=== PATIENT | female | born 1940 | race Caucasian/White ===

== ENCOUNTER → 2016-10-10 | Day surgery (SDC) | payer MEDICARE, OTHER ==
[~2016-10-10] MED LIST: CALC-137 PO; CALC1TAB87 PO; CHOL1CAP6 PO; CRAN1000 PO; CRAN600T PO; GENTAMICIN SULFATE 80 MG/2 ML VIAL ONE; LACTATED RINGER'S 1000 ML INJ 1,000 ML ONE; LEVA250T PO; MEPERIDINE HCL 25 MG/ML VIAL ONE; MIDAZOLAM HCL 2 MG/2 ML VIAL ONE; ONDANSETRON HCL 4 MG/2 ML VIAL IV PUSH ONE; PANC3600 PO; PLAV75TA29 PO; POTA-245 PO; SODIUM CHLORIDE 0.9% INJ 100 ML IV ONE; VITA1000 PO; VYTO10TA35 PO; VYTO10TA9 PO
--- NOTE | 2016-10-10 16:32 | TN ---
cc: MICAH VERA M.D. DATE OF SURGERY 10/10/2016 PREOPERATIVE DIAGNOSIS Left renal calculus (ICD - 10 code of N20.0). POSTOPERATIVE DIAGNOSIS Left renal calculus (ICD - 10 code of N20.0). PROCEDURE Extracorporeal shock wave lithotripsy (ESWL) of left renal calculus (CPT code 70999). INDICATION Ms. Mccartney is a 76-year-old woman who presents now for preemptive treatment using extracorporeal shock-wave lithotripsy for a large left renal calculus. Procedure was as follows. PROCEDURE The procedure as well as risks and benefits were explained to the patient and informed consent was obtained. The patient was taken to the operative theater. She was placed on a [employer] FLX-F2 lithotripsy table. At this time the patient was identified as well as the operative site. Lagrange time-out was performed in standard fashion. General anesthetic and prophylactic intravenous antibiotics were administered. After adequate anesthetic, a fluoroscopic C-arm was used to visualize the aforementioned stone. The shock heads were engaged and a total of 3000 shocks were administered at a frequency of 120 Hz at a power level of 8.0 with apparent pulverization of the stone. The patient tolerated the procedure well, emerged from anesthetic without difficulty and transferred to recovery in stable condition to be discharged home when criteria is met. There were no obvious complications. The patient may require additional endoscopic or extracorporal treatment depending on the results of the KUB in approximately two weeks. MD JULIO Arizmendi/ANGELA /3:43 PM /4:16 PM
== END | disposition home or self-care (01) ==
LOC: ESDC 13:08
PROVIDERS: ATTEND Urology
DX: N20.0 Calculus of kidney (principal)
CPT/HCPCS: 00872; 50590; J1580; J2175; J2250; J2405; J7120

== ENCOUNTER → 2016-11-14 | Outpatient (CLI) | payer MEDICARE, OTHER ==
[~2016-11-14] MED LIST changes: -GENTAMICIN SULFATE 80 MG/2 ML VIAL ONE; -LACTATED RINGER'S 1000 ML INJ 1,000 ML ONE; -MEPERIDINE HCL 25 MG/ML VIAL ONE; -MIDAZOLAM HCL 2 MG/2 ML VIAL ONE; -ONDANSETRON HCL 4 MG/2 ML VIAL IV PUSH ONE; -SODIUM CHLORIDE 0.9% INJ 100 ML IV ONE
[2016-11-14 17:59] LABS: BICARBONATE 23.8 MEQ/L (21.0-32.0); POTASSIUM 3.8 MEQ/L (3.5-5.1)
== END ==
LOC: PLAB 14:53
PROVIDERS: ATTEND Family Medicine
DX: M81.0 Age-related osteoporosis without current pathological fracture (principal); Z79.899 Other long term (current) drug therapy
CPT/HCPCS: 36415; 80048

== ENCOUNTER 2017-01-05 17:44 | Inpatient (IN) | payer MEDICARE, OTHER ==
[~2017-01-05 17:44] MED LIST changes: -CALC1TAB87 PO; -CRAN600T PO; -PANC3600 PO; -VITA1000 PO; -VYTO10TA9 PO
[2017-01-05 17:48] VITALS: BP 157/67; PULSE 107; RESP 16; TEMP 98.7; O2SAT 95
[2017-01-05] MEDS ORDERED: niCARdipine INJ 25 MG in SODIUM CHLOR 0.9% 250 ML INJ 250 ML IV SCH ×2 (18:00→20:00)
[2017-01-05] MEDS ORDERED: SODIUM CHLORID 0.9% 500 ML INJ 500 ML IV ONE (18:00)
[2017-01-05] MEDS ORDERED: SODIUM CHLOR 0.9% 1000 ML INJ 1,000 ML IV SCH ×2 (18:05→19:55)
[2017-01-05 18:14] LABS: AUTOMATED NEUTROPHIL # 7.4 TH/MM3 (1.8-7.7); BASOPHIL # 0.1 TH/MM3 (0-0.2); BASOPHIL % 0.5 % (0.0-2.0); EOSINOPHIL % 0.2 % (0.0-4.0); HEMATOCRIT 35.2 % (35.0-46.0); LYMPH % 21.9 % (9.0-44.0); LYMPHOCYTE # 2.5 TH/MM3 (1.0-4.8); MEAN CELL VOLUME 84.1 FL (80.0-100.0); MEAN CORPUSCULAR HEMOGLOBIN 28.6 PG (27.0-34.0); NEUT % 65.4 % (16.0-70.0); PLATELET COUNT 179 TH/MM3 (150-450); RED BLOOD COUNT 4.19 MIL/MM3 (4.00-5.30); RED CELL DISTRIBUTION WIDTH 15.5 % (11.6-17.2); WHITE BLOOD COUNT 11.3 TH/MM3 (4.0-11.0)
[2017-01-05 18:15] LABS: HEMO FLAGS AUTO DIFF
--- NOTE | 2017-01-05 18:16 | RADRPT ---
EXAM DATE/TIME: 01/05/2017 17:58 [facility] COMPARISON: No previous studies available for comparison. INDICATIONS : Stroke alert, left sided weakness. RADIATION DOSE: 31.94 CTDIvol (mGy) This report was called by Dr. Wilcox to an emergency department nurse at 6: 13 PM MEDICAL HISTORY : Non-responsive. SURGICAL HISTORY : Non-responsive. ENCOUNTER: Initial ACUITY: 1 day PAIN SCALE: Non-responsive LOCATION: head TECHNIQUE: Multiple contiguous axial images were obtained of the head. Using automated exposure control and adj ustment of the mA and/or kV according to patient size, radiation dose was kept as low as reasonably a chievable to obtain optimal diagnostic quality images. FINDINGS: CEREBRUM: The ventricles are normal for age. No evidence of midline shift, mass lesion, hemorrhage or acute in farction. No extra-axial fluid collections are seen. POSTERIOR FOSSA: The cerebellum and brainstem are intact. The 4th ventricle is midline. The cerebellopontine angle i s unremarkable. EXTRACRANIAL: The visualized portion of the orbits is intact. SKULL: The calvaria is intact. No evidence of skull fracture. CONCLUSION: 1. No acute finding CT. Findings called to emergency department at time of dictation. Bruce Wilcox MD on January 05, 2017 at 18:12 Board Certified Radiologist. This report was verified electronically.
[2017-01-05 18:19] LABS: APTT (PATIENT) 32.4 SEC (24.3-30.1); INTERNATIONAL NORMALIZED RATIO 1.1 RATIO; PROTHROMBIN TIME - PATIENT 11.7 SEC (9.8-11.6)
[2017-01-05 18:23] LABS: I-STAT POTASSIUM 2.6 MMOL/L (3.5-4.9); I-STAT SODIUM 137 MMOL/L (138-146)
--- NOTE | 2017-01-05 18:37 | MB ---
cc: KEATON LEWIS M.D. DATE OF CONSULTATION 01/05/17 The patient is an elderly woman with a history of some irregular heart rhythm, however, she denies any A. fib, bilateral lower extremity stents, left carotid endarterectomy, history of cardiac cath who came in with a stroke alert at about 5:00 or 6:00 p.m. tonight. She was in the bathroom, fell on the floor and noted be weak on the left. She came in as a stroke alert. ALLERGIES CEPHALOSPORINS BEE STINGS SULFA DIPRIVAN MEDICATIONS 1. Plavix 2. Potassium 3. Cranberry juice 4. Calcium, 5. Vitamin D 6. Vytorin in the past. REVIEW OF SYSTEMS She denies any headache. She denies any history of hypertension, diabetes, hypercholesterolemia, PR, CABG, stent, angioplasty, A. fib, Coumadin, renal, hepatc, pulmonary disease, thyroid disease lupus, ulcer, cancer, stroke. SOCIAL HISTORY She is not a smoker or drinker. She occasionally has a drink, lives with her son. FAMILY HISTORY Negative for cancer seizure, stroke PHYSICAL EXAMINATION 170/80 sinus rhythm. Her eyes are deviated to the right. She had a left homonymous hemianopsia, left facial droop. 0/5 in a left arm and leg. Left toe is up, right is down. She moves the right side well. She is not aphasic, follows commands well. Speech is fluent. Right arm and leg are normal. LABORATORY DATA UA was positive in August. Basic metabolic profile was normal recently on 11/14/2016 with a creatinine of 1.13. Today creatinine is about 2.2. Potassium in slightly low today. Sodium is normal. All the labs are not back. Coags were normal in 2012. CBC was essentially unremarkable with normal platelet count on 08/17. IMPRESSION Right MCA infarct. CAT scan is negative for hemorrhage. We will go ahead and give TPA and get an MRA of the neck and [place]. We are in touch with the radiologist and MRI. MD KELLIE Alberts/ /6:11 PM /6:26 PM
--- NOTE | 2017-01-05 18:40 | PD ---
HPI Chief Complaint: Stroke Alert Time Seen by Provider: 17:50 Travel History International Travel<30 days: No Contact w/Intl Traveler<30days: No Traveled to known affect area: No History of Present Illness HPI Patient is a 76 year old female who presents to ER with acute onset CVA. As per patients son, patient has been having problems with her gait. Reports that he helped her to the bathroom and then heard a loud thump. Son found patient on the ground - reports that he called for help. EMS arrived on scene - patient had left sided facial droop with left sided paralysis of her body. Patient is alert and oriented x 3 - she is currently on plavix and no other anticoagulants. Patient denies any recent surgeries. Patient with no history of CVA in the past. PFSH Past Medical History Arthritis: No Asthma: No Heart Rhythm Problems: No Cancer: No Cardiovascular Problems: Yes (STENTS IN LEGS) Chest Pain: No Congestive Heart Failure: No COPD: No Cerebrovascular Accident: No Diabetes: No Endocrine: No Gastrointestinal Disorders: Yes (reflux) GERD: No Glaucoma: No Genitourinary: No Hepatitis: No Hiatal Hernia: No Hypertension: No Immune Disorder: No Musculoskeletal: No Neurologic: No Psychiatric: No Reproductive: No Respiratory: Yes (copd) Migraines: No Seizures: No Sleep Apnea: No Thyroid Disease: No Ulcer: No Past Surgical History Abdominal Surgery: No Body Medical Devices: adriano lower stents Cardiac Surgery: Yes (left carotid endarterectomy, CARDIAC CATHERIZATION) Ear Surgery: No Endocrine Surgery: No Eye Surgery: No Genitourinary Surgery: No Gynecologic Surgery: No Oral Surgery: Yes (tonsillectomy) Pacemaker: No Thoracic Surgery: No Other Surgery: Yes Social History Alcohol Use: Yes (SOCIALLY) Tobacco Use: No (quit 2003) Substance Use: No Allergies-Medications (Allergen,Severity, Reaction): Coded Allergies: Cephalosporins (Verified Allergy, Severe, 08/04/16) possible cardiac arrest along with the mixture of ancef diprovan and fentanyl Bee Sting (Verified Allergy, Intermediate, RESP DISTRESS, 08/04/16) Sulfa (Verified Allergy, Mild, Rash, 08/04/16) Uncoded Allergies: DIPROVAN,FENTANYL,ANCEF (Allergy, Severe, 10/30/12) pt had cardiac arrest Reported Meds & Prescriptions Reported Meds & Active Scripts Active Levaquin (Levofloxacin) 250 Mg Tab 250 Mg PO DAILY Reported Plavix (Clopidogrel Bisulfate) 75 Mg Tab 75 Mg PO DAILY Klor-Con M20 (Potassium Chloride Microencaps) 20 Meq Tab 20 Meq PO DAILY Cranberry Juice Extract (Cranberry (Vaccinium Macrocarp) 1,000 Mg Cap 3,600 Mg PO DAILY@0600 Calcium 600 1 Tab PO BID WITH 400 IU VIT D Vitamin D-3 (Cholecalciferol) 1,000 Unit Tab 1,000 Unit PO BID Vytorin 10/40 (Ezetimibe/Simvastatin) Tab 1 Tab PO DAILY Review of Systems General / Constitutional: No: Fever Eyes: No: Visual changes HENT: No: Headaches Cardiovascular: No: Chest Pain or Discomfort Respiratory: No: Shortness of Breath Gastrointestinal: No: Abdominal Pain Genitourinary: No: Dysuria Musculoskeletal: No: Pain Skin: No Rash Neurologic: Positive: Weakness, Focal Abnormalities, Headache, Paresthesia, Sensory Disturbance Psychiatric: No: Depression Endocrine: No: Polydipsia Hematologic/Lymphatic: No: Easy Bruising Physical Exam Narrative GENERAL: Patient in severe distress SKIN: Focused skin assessment warm/dry. HEAD: Atraumatic. Normocephalic. EYES: Pupils equal and round. Patient with right-sided gaze ENT: No nasal bleeding or discharge. Mucous membranes pink and moist. Patient with left-sided facial droop NECK: Trachea midline. No JVD. CARDIOVASCULAR: Tachycardic. No murmur appreciated. RESPIRATORY: No accessory muscle use. Clear to auscultation. Breath sounds equal bilaterally. GASTROINTESTINAL: Abdomen soft, non-tender, nondistended. Hepatic and splenic margins not palpable. MUSCULOSKELETAL: No obvious deformities. No clubbing. No cyanosis. No edema. NEUROLOGICAL: Awake and alert. Normal speech. Patient with left-sided deficits : NIH Scale 16 Data Data Last Documented VS Vital Signs Date Time Temp Pulse Resp B/P Pulse Ox O2 Delivery O2 Flow Rate FiO2 01/05/17 17:48 98.7 107 16 157/67 95 Orders Sodium Chlorid 0.9% 500 Ml Inj (Ns 500 M (01/05/17 18:00) Electrocardiogram (01/05/17 ) I-Stat Creatinine (01/05/17 17:50) I-Stat Profile (01/05/17 17:50) Prothrombin Time / Inr (Pt) (01/05/17 17:50) Act Partial Throm Time (Ptt) (01/05/17 17:50) Complete Blood Count With Diff (01/05/17 17:50) Fibrinogen (01/05/17 17:50) Creatine Kinase (Cpk) (01/05/17 17:50) Troponin I (01/05/17 17:50) Ua Includes Microscopic (01/05/17 17:50) Drug Screen, Random Urine (01/05/17 17:50) Type And Screen (01/05/17 17:50) Ct Brain W/O Iv Contrast(Rout) (01/05/17 ) Consult Neurology (01/05/17 ) Blood Glucose (01/05/17 17:50) Ecg Monitoring (01/05/17 17:50) Iv Access Insert/Monitor (01/05/17 17:50) NPO (01/05/17 17:50) Oximetry (01/05/17 17:50) Oxygen Administration (01/05/17 17:50) Resp Oxygen Akash C Titrat 1-4 L (01/05/17 17:50) Nicardipine Inj (Cardene Inj) (01/05/17 18:00) Westergren Sedimentation Rate (01/05/17 18:05) Thyroid Stimulating Hormone (01/05/17 18:05) Vitamin B1 (Thiamine) (01/05/17 18:05) Vitamin B12 (01/05/17 18:05) Urinalysis - C+S If Indicated (01/05/17 18:05) Ast (Sgot) (01/05/17 18:05) Alt (Sgpt) (01/05/17 18:05) Echo 2d Comp W/Dopp(Routine) (01/05/17 18:05) Holter Monitor Recording (01/05/17 18:05) Mra Brain W/O Contrast (Cow) (01/05/17 18:05) [place] (01/05/17 18:05) Sodium Chlor 0.9% 1000 Ml Inj (Ns 1000 M (01/05/17 18:05) Lipid Profile (01/05/17 18:05) Consult Pt Eval & Treat (01/05/17 18:05) Scd&Teds Bilateral/Knee High JUANA.QSHIFT (01/05/17 18:05) (Hub Use Only)Inp Phy Cons/Ref (01/05/17 18:15) Mra Carotids W/O Contrast (01/05/17 18:05) Mri Brain W/O Contrast (01/05/17 18:05) Labs Laboratory Tests Test 01/05/17 17:15 White Blood Count 11.3 TH/MM3 Red Blood Count 4.19 MIL/MM3 Hemoglobin 12.0 GM/DL Bedside Hemoglobin 12.2 G/DL Hematocrit 35.2 % Bedside Hematocrit 36.0 % Mean Corpuscular Volume 84.1 FL Mean Corpuscular Hemoglobin 28.6 PG Mean Corpuscular Hemoglobin 34.0 % Concent Red Cell Distribution Width 15.5 % Platelet Count 179 TH/MM3 Mean Platelet Volume 9.0 FL Neutrophils (%) (Auto) 65.4 % Lymphocytes (%) (Auto) 21.9 % Monocytes (%) (Auto) 12.0 % Eosinophils (%) (Auto) 0.2 % Basophils (%) (Auto) 0.5 % Neutrophils # (Auto) 7.4 TH/MM3 Lymphocytes # (Auto) 2.5 TH/MM3 Monocytes # (Auto) 1.4 TH/MM3 Eosinophils # (Auto) 0.0 TH/MM3 Basophils # (Auto) 0.1 TH/MM3 CBC Comment AUTO DIFF Prothrombin Time 11.7 SEC Prothromb Time International 1.1 RATIO Ratio Activated Partial 32.4 SEC Thromboplast Time Fibrinogen 403 mg/dL Bedside Sodium 137 MMOL/L Bedside Potassium 2.6 MMOL/L Bedside Chloride 114 MMOL/L Bedside Blood Urea Nitrogen 64 MG/DL Bedside Creatinine 2.4 MG/DL Bedside Glucose 118 MG/DL [facility] Medical Screen Exam Complete: Yes Emergency Medical Condition: Yes Differential Diagnosis CVA, ICH Narrative Course Patient is a 76-year-old female who is alert and oriented x 3, presents to emergency room for CVA. Patient onset of symptoms was 1706 today. BS >100 by EMS. I-STAT labs obtained. NIH Score 16 Patient was brought to CT upon arrival to ER. There was no acute intracranial hemorrhage. Dr. Ruelas was at bedside, patient's initial blood pressure was 192/83, repeat blood pressure was 175/72. Cardvick gtt was at bedside. Decision was to give TPA for treatment of acute CVA. I did review all the risks and benefits of TPA with patient. Patient understands all the risks, patient assumes these risks and is agreeable to TPA CTA of the head and neck was initially ordered, creatinine was 2.4, CTA canceled. Plan to go directly to MRI for MRI of the head head and neck after TPA initiated. Patient's son (POLucas) at bedside, I did review with him pt's current medical condition. EKG: Sinus tach at 103bpm, qt/qtc: 353/413, st seg depressions Critical Care Narrative Aggregate critical care time was 45minutes. Time to perform other separately billable procedures was not included in the critical care time. My time did not include minutes spent treating any other patients simultaneously or on activities that did not directly contribute to the patient's treatment. The services I provided to this patient were to treat and/or prevent clinically significant deterioration that could result in: , decompensation, deterioration I provided critical care services requiring my management, as noted below: Chart data review, documentation time, medication orders and management, vital sign assessments/reviewing monitor data, ordering and reviewing lab tests, ordering and interpreting/reviewing x-rays and diagnostic studies, care of the patient and discussion of the patient with the admitting physicians. Stroke Alert NIHSS NIH Stroke Scale Result: 16 NIHSS Time Completed: 17:45 Thrombolytic Contraindications Contraindications Comment: there are no contraindications for thrombolytics Thrombolytic Delayed Delay Comment: thrombolytics were given while patient was at CT - I as well as neurolgist was present for TPA administration Diagnosis Diagnosis: Primary Impression: CVA (cerebral vascular accident) Qualified Code: I63.9 - Cerebrovascular accident (CVA), unspecified mechanism Additional Impressions: Hypokalemia Renal insufficiency Admitting Physician Requests: Admit Casie Hanson DO January 05, 2017 18:40
[2017-01-05 18:44] LABS: BANDS 17 % (0-6); EOSINOPHILS 1 % (0-4); MYELOCYTES 1 % (0-0); NEUTROPHIL # MANUAL DIFF 8.2 TH/MM3 (1.8-7.7); POLYS (SEG NEUTROPHILS) 55 % (16-70); SCAN/DIFF FINAL DIFF MANUAL; WBC DIFF SAMPLE 100
[2017-01-05 18:45] LABS: CREATINE KINASE 19 U/L (26-192)
[2017-01-05] MEDS ORDERED: CALC1TAB87 PO (18:48)
[2017-01-05] MEDS ORDERED: VITA1000 PO (18:48)
[2017-01-05] MEDS ORDERED: CRAN600T PO (18:51)
[2017-01-05] MEDS ORDERED: VYTO10TA9 PO (18:54)
[2017-01-05] MEDS ORDERED: PANC3600 PO (18:58)
[2017-01-05] MEDS ORDERED: ALTEPLASE DRIP 40.5 MG in SYRINGE/BAG 1 EA IV ONE (19:00)
[2017-01-05] MEDS ORDERED: ALTEPLASE BOLUS 9 MG/9 ML SYR IV ONE (19:00)
[2017-01-05] MEDS ORDERED: MISCELLANEOUS NURSING INFORMATION XX PRN (19:00)
[2017-01-05] MEDS ORDERED: SODIUM CHLORIDE 0.9% 50 ML BAG IVF ONE (19:00)
--- NOTE | 2017-01-05 19:30 | RADRPT ---
EXAM DATE/TIME: 01/05/2017 18:28 [facility] COMPARISON: No previous studies available for comparison. INDICATIONS : Left sided weakness. MEDICAL HISTORY : Renal failure, chronic. Hypertension. Cardiovascular disease. SURGICAL HISTORY : Carotid stent. ENCOUNTER: Initial ACUITY: 1 day PAIN SCORE: 0/10 LOCATION: cranial Please note a normal MRA of the brain does not entirely exclude the possibility of a small aneurysm, nor the possibility of distal intracranial vessel disease. TECHNIQUE: 3D time of flight MRA was performed. Source images, multiplanar STS MIP, and 3D volume MIP reconstru ctions were reviewed. FINDINGS: The exam is degraded by motion artifact. There is a suspected high-grade stenosis in the distal right internal carotid artery. The right middle cerebral artery is occluded. The anterior superior middle, and left middle cerebral and posterior cerebral arteries are patent. Basilar artery is patent. There is a possible stenosis in the distal right vertebral artery. CONCLUSION: 1. Occluded right middle cerebral artery. Probable high-grade stenosis right internal carotid artery and right vertebral artery. Bruce Wilcox MD on January 05, 2017 at 19:16 Board Certified Radiologist. This report was verified electronically.
--- NOTE | 2017-01-05 19:43 | RADRPT ---
EXAM DATE/TIME: 01/05/2017 18:28 [facility] COMPARISON: No previous studies available for comparison. INDICATIONS : Left sided weakness. MEDICAL HISTORY : Hypertension. Renal insufficiency, chronic. SURGICAL HISTORY : Carotid stent ENCOUNTER: Initial ACUITY: 1 day PAIN SCORE: 0/10 LOCATION: cranial TECHNIQUE: Multiplanar, multisequence MRI of the brain was performed without contrast. FINDINGS: There is a large area of ischemia or early infarction in the right MCA distribution with additional s mall lacunar infarct in the right occipital lobe. No left-sided infarction. Mild to moderate chronic ischemic changes in the white matter. No mass effect or midline shift. No abnormal extra-axial fluid. CONCLUSION: 1. Large area of ischemia or infarction in the right MCA distribution as above without associated mas s effect or hemorrhage identified. 2. Mild to moderate chronic ischemic changes in the white matter. Bruce Wilcox MD on January 05, 2017 at 19:39 Board Certified Radiologist. This report was verified electronically.
--- NOTE | 2017-01-05 19:49 | RADRPT ---
EXAM DATE/TIME: 01/05/2017 18:28 [facility] COMPARISON: No previous studies available for comparison. INDICATIONS : Stroke. MEDICAL HISTORY : Hypertension. Renal insufficiency, chronic. Cardiovascular disease. SURGICAL HISTORY : Carotid stent. ENCOUNTER: Initial ACUITY: 1 day PAIN SCORE: 0/10 LOCATION: neck Percent stenosis is calculated using the diameter of the stenotic region over the diameter of the nor mal distal internal carotid artery. TECHNIQUE: 3D time of flight MRA of the extracranial circulation was performed using a neurovascular coil. Post processing was performed including rotating subvolume maximum intensity projections of each carotid artery, rotating full-volume maximum intensity projections of both carotid arteries, sagittal and cor onal sliding thin-slab reformations of each carotid artery, and left oblique sliding thin slab reform ation through the aortic arch to include the origin of the arch branch vessels. FINDINGS: There is a high-grade stenosis of the distal right internal carotid artery. Left internal carotid art jay appears patent. There is some atherosclerotic irregularity of the common carotid arteries. Exam i s degraded by motion. No significant stenosis is seen in the vertebral arteries or basilar artery on this exam. Great vessel origins are not well evaluated. CONCLUSION: 1. High-grade stenosis distal right internal carotid artery. No significant stenosis seen in the vert ebral arteries or basilar artery. Previous finding on MRA brain with regard to vertebral arteries may be artifactual. Bruce Wilcox MD on January 05, 2017 at 19:41 Board Certified Radiologist. This report was verified electronically.
[2017-01-05] MEDS ORDERED: VERAPAMIL HCL 5 MG/2 ML VIAL ONE (19:58)
[2017-01-05] MEDS ORDERED: MIDAZOLAM HCL 5 MG/5 ML VIAL ONE (19:58)
[2017-01-05] MEDS ORDERED: DEXTROSE 50% IN WATER 50 ML VIAL(D50) IV PUSH PRN (20:00)
[2017-01-05] MEDS ORDERED: SODIUM CHLORIDE 0.9% FLUSH 10 ML FLUSH IV FLUSH PRN (20:00)
[2017-01-05] MEDS ORDERED: ENALAPRILAT 1.25 MG/ML VIAL IV PRN (20:00)
[2017-01-05] MEDS ORDERED: LABETALOL HCL 100 MG/20 ML VIAL IV PRN (20:00)
[2017-01-05] MEDS ORDERED: GLUCAGON 1 MG/ML VIAL IM/SQ PRN (20:00)
[2017-01-05] MEDS ORDERED: HYDROmorphone HCL PF 2 MG/ML VIAL ONE (20:02)
--- NOTE | 2017-01-05 20:12 | HHI.HP ---
HPI Service Critical Care Medicine Primary Care Physician Edie Dowell MD Admission Diagnosis CVA Diagnosis: Travel History International Travel<30 Days: No Contact w/Intl Traveler <30 Da: No Traveled to Known Affected Are: No History of Present Illness 76 year old female who presents with acute onset right MCA CVA. As per patients son, patient has been having problems with her gait. Reports that he helped her to the bathroom and then heard a loud thump. Son found patient on the ground - reports that he called for help. She has received TPA in the emergency department however without neurological improvement. She was taking emergently to IR suite where attempt of mechanical thrombectomy was made, however again without any success. This is a catastrophic event with a large right MCA territory CVA. Based on patient's current age and other comorbidities extremely poor prognosis of neurological outcome was discussed with the patient's son. Patient has always expressed her wishes to her son what would the directives that the situation like this be. She would never want to be placed on the life support machines and if there is no meaningful neurological recovery she wouldn't want to receive any aggressive treatment. The patient requested to consult palliative care and make patient comfortable. I agree this is a very rational decision and we will honor patient didn't family wishes. Review of Systems ROS Unable to obtain due to altered neurological status Past Family Social History Allergies: Coded Allergies: Cephalosporins (Verified Allergy, Severe, 08/04/16) possible cardiac arrest along with the mixture of ancef diprovan and fentanyl Bee Sting (Verified Allergy, Intermediate, RESP DISTRESS, 08/04/16) Sulfa (Verified Allergy, Mild, Rash, 08/04/16) Uncoded Allergies: DIPROVAN,FENTANYL,ANCEF (Allergy, Severe, 10/30/12) pt had cardiac arrest Past Medical History Hypertension Dyslipidemia Coronary artery disease Osteoarthritis Previous strokes Past Surgical History Unable to obtain Reported Medications Reported Meds & Active Scripts Active Reported Creon (Pancrelipase) 36,000-114,000-180,000 Units Cap 2 Cap PO TIDPC Vytorin (Ezetimibe-Simvastatin) 10-40 Mg Tab 1 Tab PO HS Cranberry (Cranberry (Vaccinium Macrocarpon)) 600 Mg Tab 3,600 Mg PO DAILY@0600 Vitamin D-1000 (Cholecalciferol) 1,000 Unit Tab 1,000 Units PO BID Calcium 600 with Vitamin D (Calcium Carbonate-Cholecalciferol) 600-400 mg-Unit Tab 1 Tab PO BID Plavix (Clopidogrel Bisulfate) 75 Mg Tab 75 Mg PO DAILY Klor-Con M20 (Potassium Chloride Microencaps) 20 Meq Tab 20 Meq PO DAILY Active Ordered Medications Current Medications Medications (Trade) Dose Ordered Sig/[place] Route PRN Reason Start Time Stop Time Status Last Admin Dose Admin Miscellaneous Information No Heparin, Warfarin, Aspir... UNSCH PRN XX SEE DOSE INSTRUCTIONS 01/05/17 19:00 01/06/17 18:59 Sodium Chloride (NS Flush) 2 ml BID IV FLUSH 01/05/17 21:00 01/05/17 22:32 Sodium Chloride 2 ml 2 ml UNSCH PRN IV FLUSH FLUSH AFTER USING IV ACCESS 01/05/17 20:00 Sodium Chloride (NS 1000 ml Inj) 1,000 ml @ 70 mls/hr [id number] IV 01/05/17 19:55 Enalaprilat (Vasotec Inj) 1.25 mg Q4H PRN IV For SBP > 220 or DBP > 120 01/05/17 20:00 Labetalol HCl 10 mg 10 mg Q2H PRN IV For SBP > 220 or DBP > 120 01/05/17 20:00 Nicardipine HCl/ Sodium Chloride (Cardene Inj/NS 250 ml Inj) 260 ml @ 0 mls/hr TITRATE IV 01/05/17 20:00 Atorvastatin Calcium (Lipitor) 10 mg HS PO 01/05/17 21:00 Dextrose (D50w (Vial) Inj) 25 ml UNSCH PRN IV PUSH HYPOGLYCEMIA-SEE COMMENTS 01/05/17 20:00 Glucagon 1 mg 1 mg UNSCH PRN IM/SQ HYPOGLYCEMIA-SEE COMMENTS 01/05/17 20:00 Sodium Chloride 1,000 ml @ 999 mls/hr BOLUS ONCE IV 01/05/17 22:30 01/05/17 23:30 01/05/17 22:36 Sodium Chloride (NS 1000 ml Inj) 1,000 ml @ 999 mls/hr BOLUS ONCE IV 01/05/17 22:30 01/05/17 23:30 Morphine Sulfate (Morphine Inj) 5 mg Q30M PRN IV PUSH dyspnea 01/05/17 22:45 UNV Lorazepam (Ativan Inj) 2 mg Q2H PRN IV PUSH anx 01/05/17 22:45 UNV Family History Noncontributory Social History Negative 3 Physical Exam Vital Signs Vital Signs Date Time Temp Pulse Resp B/P Pulse Ox O2 Delivery O2 Flow Rate FiO2 01/05/17 17:48 100 Room Air 01/05/17 17:48 98.7 107 16 157/67 95 Physical Exam GENERAL: Well-nourished, well-developed patient elderly woman. SKIN: Warm and dry. HEAD: Normocephalic. EYES: No scleral icterus. No injection or drainage. NECK: Supple, trachea midline. No JVD or lymphadenopathy. CARDIOVASCULAR: Regular rate and rhythm without murmurs, gallops, or rubs. RESPIRATORY: Breath sounds equal bilaterally. No accessory muscle use. GASTROINTESTINAL: Abdomen soft, non-tender, nondistended. MUSCULOSKELETAL: No cyanosis, or edema. BACK: Nontender without obvious deformity. No CVA tenderness. EXTREMITIES: No clubbing cyanosis or edema. Complete left-sided hemiplegia. Laboratory Laboratory Tests Test 01/05/17 01/05/17 17:15 18:04 White Blood Count 11.3 Red Blood Count 4.19 Hemoglobin 12.0 Bedside Hemoglobin 12.2 Hematocrit 35.2 Bedside Hematocrit 36.0 Mean Corpuscular Volume 84.1 Mean Corpuscular Hemoglobin 28.6 Mean Corpuscular Hemoglobin 34.0 Concent Red Cell Distribution Width 15.5 Platelet Count 179 Mean Platelet Volume 9.0 Neutrophils (%) (Auto) 65.4 Lymphocytes (%) (Auto) 21.9 Monocytes (%) (Auto) 12.0 Eosinophils (%) (Auto) 0.2 Basophils (%) (Auto) 0.5 Neutrophils # (Auto) 7.4 Lymphocytes # (Auto) 2.5 Monocytes # (Auto) 1.4 Eosinophils # (Auto) 0.0 Basophils # (Auto) 0.1 CBC Comment AUTO DIFF Differential Total Cells 100 Counted Neutrophils % (Manual) 55 Band Neutrophils % 17 Lymphocytes % 15 Monocytes % 11 Eosinophils % 1 Neutrophils # (Manual) 8.2 Myelocytes 1 Differential Comment FINAL DIFF MANUAL Prothrombin Time 11.7 Prothromb Time International 1.1 Ratio Activated Partial 32.4 Thromboplast Time Fibrinogen 403 Bedside Sodium 137 Bedside Potassium 2.6 Bedside Chloride 114 Bedside Blood Urea Nitrogen 64 Bedside Creatinine 2.4 Bedside Glucose 118 Total Creatine Kinase 19 Troponin I LESS THAN 0.02 Blood Type A POSITIVE Antibody Screen NEGATIVE Erythrocyte Sedimentation Rate 46 Result Diagram: 01/05/17 1715 Imaging Last 24 hours Impressions Neck Magnetic Resonance Angiography 01/05/17 1805 Signed Impressions: Service Date/Time: Thursday, January 05, 2017 18:28 - CONCLUSION: 1. High-grade stenosis distal right internal carotid artery. No significant stenosis seen in the vertebral arteries or basilar artery. Previous finding on MRA brain with regard to vertebral arteries may be artifactual. Bruce Wilcox MD Head Magnetic Resonance Angiography 01/05/17 1805 Signed Impressions: Service Date/Time: Thursday, January 05, 2017 18:28 - CONCLUSION: 1. Occluded right middle cerebral artery. Probable high-grade stenosis right internal carotid artery and right vertebral artery. Bruce Wilcox MD Brain MRI 01/05/17 1805 Signed Impressions: Service Date/Time: Thursday, January 05, 2017 18:28 - CONCLUSION: 1. Large area of ischemia or infarction in the right MCA distribution as above without associated mass effect or hemorrhage identified. 2. Mild to moderate chronic ischemic changes in the white matter. Bruce Wilcox MD Head CT 01/05/17 0000 Signed Impressions: Service Date/Time: Thursday, January 05, 2017 17:58 - CONCLUSION: 1. No acute finding CT. Findings called to emergency department at time of dictation. Bruce Wilcox MD Assessment and Plan Assessment and Plan Right MCA CVA - Status post unsuccessful mechanical thrombectomy attempt - Status post TPA administration - Neurology consult appreciated - Comfort measures only due to poor neurological outcome Hypertension - Originally goal to keep Normotensive - Using labetalol when necessary Vasotec when necessary and nicardipine drip - Comfort measures only DVT GI prophylaxis Critical Care: The total critical care time was 35 minutes. Time to perform other separately billable procedures was not included in the critical care time. Arvind Granado MD January 05, 2017 20:11
--- NOTE | 2017-01-05 20:15 | MB ---
cc: KEATON LEWIS M.D. DATE OF CONSULTATION: 01/05/2017 ADDENDUM The patient's MRA [place] shows a right MCA occlusion. I did talk with Dr. Ted Limon. He is going to come in and try to extract the clot. She did get tPA and has not improved at all. Her NIH Stroke Scale is 14. MD KELLIE Alberts/MARIA DEL CARMEN /7:04 PM /8:14 PM
[2017-01-05] MEDS ORDERED: SODIUM CHLORIDE 0.9% FLUSH 10 ML FLUSH IV FLUSH SCH (21:00)
[2017-01-05] MEDS ORDERED: INSULIN ASPART SUPPLEMENTAL SCALE SQ SCH (21:00)
[2017-01-05] MEDS ORDERED: ATORVASTATIN 10 MG TAB PO SCH (21:00)
--- NOTE | 2017-01-05 21:37 | EKG ---
Date Performed: 01/05/2017 Time Performed: 17:50:28 PTAGE: 76 years EKG: SINUS TACHYCARDIA MODERATE ST DEPRESSION ABNORMAL ECG INTERPRETATION BASED ON A DEFAULT AGE OF 40 YEARS PREVIOUS TRACING : 06/17/2013 10.53 DOCTOR: Nayana Chan Interpretating Date/Time 01/05/2017 21:35:44
[2017-01-05 21:38] LABS: HDL CHOLESTEROL 15.6 MG/DL (40.0-60.0)
[2017-01-05 22:00] VITALS: BP 115/60; PULSE 154; RESP 14; TEMP 98.5; O2SAT 99
--- NOTE | 2017-01-05 22:09 | PD.RAD ---
Post Procedure Progress Note Pre Procedure Diagnosis: (1) CVA (cerebral vascular accident) Post Procedure Diagnosis: (1) CVA (cerebral vascular accident) Procedure Date: January 05, 2017 Supervising Radiologist: Mo Limon Estimated blood loss: 10cc Anesthesia: Local, Conscious Sedation Plan of Activity Patient to Unit: Critical Care Patient Condition: Critical Additional Comments: 76 y/o with complete occlusion of the right MCA at the distal M1 segment Right carotid angio with clot extraction attempted without success. The occlusion could be easily engaged but is likely quite hard as it could not be removed. 3 passes made with the Penumbra with only small fragments removed. Right MCA remained occluded at the conclusion of the procedure. Right groin closed with an angioseal due to TPA infusion prior to procedure. PT has severe vascular disease and densely calcified small vessels. PT transported to the ICU. See PACS Report for procedural detail/treatment Mo Limon MD January 05, 2017 22:09
[2017-01-05] MEDS ORDERED: IODIXANOL 320 MG/ML 50 ML VIAL (for RAD SPEC) I-ARTERIAL ONE (22:21)
[2017-01-05] MEDS ORDERED: SODIUM CHLOR 0.9% 1000 ML INJ 1,000 ML IV ONE ×2 (22:30)
[2017-01-05] MEDS ORDERED: LORazepam 2 MG/ML VIAL IV PUSH PRN (22:45)
[2017-01-05] MEDS ORDERED: MORPHINE SULFATE 8 MG/ML INJ ONE (22:46)
[2017-01-06] VITALS: BP 74/43; PULSE 150; RESP 17; TEMP 99.3; O2SAT 93
[2017-01-06 04:00] VITALS: BP 72/39; PULSE 99; RESP 15; TEMP 99.5; O2SAT 92
[2017-01-06] MEDS: MORPHINE SULFATE 8 MG/ML INJ IV PUSH PRN ×5 (04:57→13:57)
[2017-01-06 08:00] VITALS: BP 84/48; PULSE 95; RESP 16; TEMP 99.6; O2SAT 90
[2017-01-06 08:41] VITALS: O2SAT 90
[2017-01-06 09:37] LABS: HEMOGLOBIN A1a 1.3 %; HEMOGLOBIN A1b 1.7 %; HEMOGLOBIN Ao 84.2 %; HEMOGLOBIN LA1C 2.3 %; HEMOGLOBIN P3 5.8 %
[2017-01-06 12:00] VITALS: BP 76/46; PULSE 110; RESP 22; TEMP 97.9; O2SAT 76
--- NOTE | 2017-01-06 12:25 | OTSOAPIP ---
1130 AM PATIENT IS COMFORT MEASURES WILL DISCHARGE OT ORDER. JT Therapist: Misty Clemente OTR/L Signature on file
--- NOTE | 2017-01-06 15:18 | HHI.CCPN ---
Subjective Remarks/Hospital Course 01/06: Large right hemispheric stroke after sudden occlusion of the right internal carotid artery. No improvement overnight. Objective Vital Signs Date Time Temp Pulse Resp B/P Pulse Ox O2 Delivery O2 Flow Rate FiO2 01/06/17 12:00 97.9 110 22 76/46 76 01/06/17 08:41 21 01/05/17 22:45 Nasal Cannula 4.00 Result Diagram: 01/05/17 1715 Imaging Last 24 hours Impressions Neck Magnetic Resonance Angiography 01/05/171804 Signed Impressions: Service Date/Time: Thursday, January 05, 2017 18:28 - CONCLUSION: 1. High-grade stenosis distal right internal carotid artery. No significant stenosis seen in the vertebral arteries or basilar artery. Previous finding on MRA brain with regard to vertebral arteries may be artifactual. Bruce Wilcox MD Head Magnetic Resonance Angiography 01/05/171804 Signed Impressions: Service Date/Time: Thursday, January 05, 2017 18:28 - CONCLUSION: 1. Occluded right middle cerebral artery. Probable high-grade stenosis right internal carotid artery and right vertebral artery. Bruce Wilcox MD Brain MRI 01/05/171804 Signed Impressions: Service Date/Time: Thursday, January 05, 2017 18:28 - CONCLUSION: 1. Large area of ischemia or infarction in the right MCA distribution as above without associated mass effect or hemorrhage identified. 2. Mild to moderate chronic ischemic changes in the white matter. Bruce Wilcox MD Head CT 01/05/17 0000 Signed Impressions: Service Date/Time: Thursday, January 05, 2017 17:58 - CONCLUSION: 1. No acute finding CT. Findings called to emergency department at time of dictation. Bruce Wilcox MD Objective Remarks GENERAL: Elderly patient elderly woman. SKIN: Warm and dry. HEAD: Normocephalic. EYES: No scleral icterus. No injection or drainage. NECK: Supple, trachea midline. CARDIOVASCULAR: Regular rate and rhythm without murmurs, gallops, or rubs. No JVD. RESPIRATORY: Breath sounds equal bilaterally. No wheezes. GASTROINTESTINAL: Abdomen soft, non-tender, nondistended. BS active. MUSCULOSKELETAL: No cyanosis, or edema. BACK: Nontender without obvious deformity. No CVA tenderness. EXTREMITIES: No clubbing cyanosis or edema. Complete left-sided hemiplegia. NEURO: Flaccid left arm and leg. Left facial droop. Responds verbally. Can speak. Stares right. A/P Assessment and Plan Right MCA CVA - Status post unsuccessful mechanical thrombectomy attempt - Status post TPA administration - Neurology consult appreciated - Comfort measures only due to poor neurological outcome Hypertension - Originally goal to keep Normotensive - Using labetalol when necessary Vasotec when necessary and nicardipine drip - Comfort measures only DVT GI prophylaxis Overall impression: Large, acute right hemispheric stroke. Protects airway. Attempts to retrieve clot unsuccessful. Ricardo Norwood MD January 06, 2017 15:17
--- NOTE | 2017-01-06 15:42 | HHI.PR ---
Objective Vital Signs Date Time Temp Pulse Resp B/P Pulse Ox O2 Delivery O2 Flow Rate FiO2 01/06/17 12:00 97.9 110 22 76/46 76 01/06/17 08:41 90 21 01/06/17 08:00 99.6 95 16 84/48 90 01/06/17 04:00 99.5 99 15 72/39 92 01/06/17 00:00 99.3 150 17 74/43 93 01/05/17 22:45 93 Nasal Cannula 4.00 01/05/17 22:00 98.5 154 14 115/60 99 01/05/17 22:00 95 Nasal Cannula 4.00 01/05/17 17:48 100 Room Air 01/05/17 17:48 98.7 107 16 157/67 95 I/O 01/05/17 01/05/17 01/05/17 01/06/17 01/06/17 01/06/17 07:00 15:00 23:00 07:00 15:00 23:00 Intake Total 0 ml 0 ml Output Total 0 ml 0 ml Balance 0 ml 0 ml Intake Oral 0 ml 0 ml IV Total 0 ml 0 ml Output Urine Total 0 ml 0 ml # Voids 1 # Bowel Movements 0 0 Result Diagram: 01/05/17 1715 Objective Remarks comatose pupil pinpt bilat Assessment and Plan Assessment and Plan imp for hospice and i agree will sign off Brian Ruelas MD January 06, 2017 15:42
[2017-01-06 16:00] VITALS: BP 76/72; PULSE 108; RESP 36; TEMP 99.3; O2SAT 87
--- NOTE | 2017-01-14 09:52 | RADRPT ---
EXAM DATE/TIME: 01/05/2017 21:11 [facility] COMPARISON: No previous studies available for comparison. INDICATIONS : Stroke alert MEDICAL HISTORY : 1.PAD 2.COPD SURGICAL HISTORY : 1. Stent placed in legs 2.Lt carotid endarectomy ENCOUNTER: Initial ACUITY: 1 day PAIN SCORE: Nonresponsive. FLUORO TIME: 20.3 minutes IMAGE SERIES: 9 ACCESS SITE: Right Femoral artery SEDATION TIME: 75 minutes CONTRAST: 75 cc Visipaque (iodixanol) MEDICATION(S): 1.) 2 mg midazolam (Versed) IV 2.) 2 mg hydromorphone (Dilaudid) IV DEVICE(S): 1.) Right common femoral artery 6fr Angio-Seal PROCEDURE : 1. Ultrasound-guided puncture of the access site. 2. Angiography of the access site prior to closure device. 3. Conscious sedation with continuous EKG and Oximetry monitoring. 4. Percutaneous closure of the access site. 5. Angiography of the right internal carotid 6. Angiography of the intracranial circulation on the right. 7. attempted right middle cerebral embolectomy. The risks, benefits and alternatives to the procedure were explained to the patient's son. Verbal and written consent was obtained. The right groin was prepped in sterile fashion. Full sterile techniq ue was used, including cap, mask, sterile gloves and gown and a large sterile sheet. Hand hygiene an d 2% chlorhexidine and/or betadine/alcohol prep was utilized per protocol for cutaneous antisepsis. The skin and subcutaneous tissues were infiltrated with local anesthetic solution. With ultrasound and fluoroscopic guidance the right common femoral artery was punctured and a vascula r sheath was placed. Angiography of the common femoral artery was performed for evaluation prior to percutaneous closure device placement. A 4 [place] hemostatic sheath was passed into the right common femoral artery. Patient was noted to pat[place] ve advanced vascular disease within the common femoral and external iliac circulation. A JB2 catheter and 0.035 angled Glidewire was advanced into the origin of the right internal carotid artery. Selective angiography of the right internal carotid and the intracranial circulation was perf ormed. Results: Selective angiography of the intracranial circulation demonstrated abrupt occlusion of the right midd le cerebral at the level of the mid M1 segment. There was little collateral flow to the right parieta l cortex. The 4 [place] sheath was exchanged for a neuron guide catheter. A Marksman catheter and 0.016 Agility guidewire were advanced into the right M1 segment. The occluded segment of vessel was traversed with a guidewire and catheter. Position in the distal MCA branches was performed. The penumbra catheter was advanced over the microcatheter. This was passed into the base of the clot and suction was initiated. The clot was easily engaged. Standard suction protocol was used. The joelle ter was withdrawn. Some small fragments of thrombus were obtained however, followup angiography demon strated continued complete occlusion of the right MCA. The lumbar catheter was advanced into position and the clot was engaged a total of 3 times. Each time this was unsuccessful and only small fragment s of thrombus could be removed. The procedure was terminated at the conclusion of the third pass. A followup angiogram demonstrated c ontinued occlusion of the right middle cerebral. A groin angiogram demonstrated advanced atherosclerotic disease in the distal external iliac and comm on femoral arteries. The decision was made to close the groin with Angio-Seal closure device as the p atient had received TPA for attempted clot lysis prior to the procedure. Conscious sedation was performed with the prescribed dosages and duration as above in the presence of an independent trained radiology nurse to assist in the monitoring of the patient. EKG and oximet ry remained stable throughout the procedure. CONCLUSION: 1. Unsuccessful removal/embolectomy of thrombus within the right middle cerebral at the level of the mid M1 segment. The clot could be easily engaged with the Penumbra suction catheter; however, in spit e of good engagement of the clot it could not be extracted. Mo Limon MD on January 14, 2017 at 9:31 Board Certified Radiologist. This report was verified electronically.
== END 2017-01-06 18:42 | disposition hospice, inpatient (51) | DRG 23 ==
LOC: NEPE 17:44 → NEDA 18:44 → N03A 21:54
PROVIDERS: ADMIT Internal Medicine Critical Care Medicine; ATTEND Internal Medicine Critical Care Medicine
PROC: 03CG3ZZ Extirpation of Matter from Intracranial Artery, Percutaneous Approach (ICD-10-PCS; principal; 2017-01-05)
PROC: 3E03317 Introduction of Other Thrombolytic into Peripheral Vein, Percutaneous Approach (ICD-10-PCS; 2017-01-05)
DX: I63.511 Cerebral infarction due to unspecified occlusion or stenosis of right middle cerebral artery (principal); I63.231 Cerebral infarction due to unspecified occlusion or stenosis of right carotid arteries; R40.20 Unspecified coma; G81.94 Hemiplegia, unspecified affecting left nondominant side; J44.9 Chronic obstructive pulmonary disease, unspecified; E87.6 Hypokalemia; R29.810 Facial weakness; N28.9 Disorder of kidney and ureter, unspecified; K21.9 Gastro-esophageal reflux disease without esophagitis; E78.5 Hyperlipidemia, unspecified; I10 Essential (primary) hypertension; I25.10 Atherosclerotic heart disease of native coronary artery without angina pectoris; H53.462 Homonymous bilateral field defects, left side; M19.90 Unspecified osteoarthritis, unspecified site; Z51.5 Encounter for palliative care; Z86.73 Personal history of transient ischemic attack (TIA), and cerebral infarction without residual deficits; Z86.74 Personal history of sudden cardiac arrest; Z87.891 Personal history of nicotine dependence; Z88.1 Allergy status to other antibiotic agents; Z88.2 Allergy status to sulfonamides; Z91.030 Bee allergy status
CPT/HCPCS: 36224; 61645; 70450; 70544; 70547; 70551; 76937; 80061; 82435; 82550; 82565; 82607; 82947; 83036; 84132; 84295; 84425; 84443; 84450; 84460; 84484; 84520; 85007; 85027; 85384; 85610; 85652; 85730; 86850; 86900; 86901; 93005; C1757; C1760; C1769; C1887; C1894; G0269; J1170; J2060; J2250; J2270; J7030; J7040; Q9967